=== PATIENT | female | born 1965 | race Caucasian/White ===

== ENCOUNTER 2018-06-19 23:35 | Emergency (ER) | payer OTHER, SELFPAY ==
[2018-06-19 23:59] VITALS: BP 130/76; PULSE 57; RESP 18; TEMP 36.6; O2SAT 99; BMI 24.7
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
[2018-06-20 01:22] VITALS: BP 130/76; PULSE 57; RESP 18; TEMP 36.6; O2SAT 99; BMI 24.7
[2018-06-20 01:42] VITALS: BP 101/65; PULSE 52; RESP 14; O2SAT 98
== END 2018-06-20 01:24 | disposition home or self-care (01) ==
PROVIDERS: Emergency Provider Emergency Medicine; Family Provider Family Medicine; PCP Family Medicine
DX: S06.0X0A Concussion without loss of consciousness, initial encounter (principal); S00.83XA Contusion of other part of head, initial encounter; V49.9XXA Car occupant (driver) (passenger) injured in unspecified traffic accident, initial encounter
CPT/HCPCS: 99282

== ENCOUNTER → 2019-06-24 08:57 | Outpatient (CLI) | payer OTHER, SELFPAY ==
[2019-06-24 09:45] LABS: Add Manual Diff / Slide Review NO; Basophils Absolute Auto 0 /uL (0-100); Basophils Percent Auto 0.7 % (0-2); Eosinophils Absolute Auto 100 /uL (0-450); Eosinophils Percent Auto 1.6 % (2-4); Hematocrit 41.9 % (36-46); Hemoglobin 14.5 g/dL (12.0-16.0); Lymphocytes Absolute Auto 2400 /uL (1100-4500); Mean Corpuscular HGB Conc 34.6 % (30-36); Mean Corpuscular Hemoglobin 30.6 PG (26-34); Mean Corpuscular Volume 88.4 fL (80-100); Monocytes Absolute Auto 500 /uL (0-900); Monocytes Percent Auto 8.3 % (3-14); Neutrophils Absolute Auto 3000 /uL (1500-7000); Neutrophils Percent Auto 49.4 % (50-75); Platelet Count 330 X10^3/uL (150-400); Red Blood Cell Count 4.73 X10^6/uL (4.0-5.2); Red Cell Distribution Width 12.3 % (11.6-14.8); White Blood Cell Count 6.1 X10^3/uL (4.5-11.0)
[2019-06-24 10:51] LABS: Alanine Aminotransferase 31 IU/L (9-52); Albumin 4.8 g/dL (3.5-5.0); Albumin Globulin Ratio 1.7 (1.0-2.8); Alkaline Phosphatase 85 U/L (38-126); Aspartate Aminotransferase 33 IU/L (14-36); BUN Creatinine Ratio 23.3 (6-22); Bilirubin Total 0.6 mg/dL (0.2-1.3); Blood Urea Nitrogen 14 mg/dL (7-17); Calcium 9.8 mg/dL (8.4-10.2); Carbon Dioxide 26 mmol/L (22-32); Chloride 103 mmol/L (98-107); Cholesterol 282 mg/dL (140-199); Estimated Glomerular Filt Rate > 60.0 mL/min (>60); Globulin 2.9 g/dL (1.7-4.1); Glucose 94 mg/dL (70-100); HDL Cholesterol 56 mg/dL (40-60); HEMOLYSIS < 15 (0-50); LDL Cholesterol Calculated 184 mg/dL (<100); Potassium 4.5 mmol/L (3.4-5.1); Sodium 140 mmol/L (137-145); Total Protein 7.7 g/dL (6.3-8.2); Triglycerides 211 mg/dL (35-150)
[2019-06-24 11:17] LABS: TSH w/ Reflex to FT4 1.98 uIU/mL (0.47-4.68)
== END ==
PROVIDERS: PCP Family Medicine; Visit Provider Nurse Practitioner
DX: T67.5XXA Heat exhaustion, unspecified, initial encounter (principal); Z13.220 Encounter for screening for lipoid disorders; Z13.29 Encounter for screening for other suspected endocrine disorder
CPT/HCPCS: 36415; 80053; 80061; 84443; 85025

== ENCOUNTER → 2020-08-14 15:16 | Outpatient (CLI) | payer OTHER, SELFPAY ==
[2020-08-17 06:48] LABS: COVID19 Sendout Not Detected (Not Detect)
== END ==
PROVIDERS: PCP Family Medicine; Visit Provider Nurse Practitioner
DX: Z11.59 Encounter for screening for other viral diseases (principal); J02.9 Acute pharyngitis, unspecified
CPT/HCPCS: 87070; 87635

== ENCOUNTER → 2021-01-31 13:38 | Outpatient (CLI) | payer OTHER, SELFPAY ==
--- NOTE | 2021-01-31 13:40 | DI.MG.S_ITS ---
BILATERAL DIGITAL DIAGNOSTIC MAMMOGRAM 3D/2D: 01/31/2021 CLINICAL: Bilateral lumps. Comparison is made to exams dated: 03/03/2018 mammogram - [facility], 05/06/2017 mammogram, 02/24/2014 mammogram - [facility], and 03/03/2018 ultrasound - [facility]. The tissue of both breasts is heterogeneously dense. This may lower the sensitivity of mammography. No significant masses, calcifications, or other findings are seen in either breast. IMPRESSION: INCOMPLETE: NEEDS ADDITIONAL IMAGING EVALUATION No mammographic evidence of malignancy. A targeted left breast ultrasound is recommended and will immediately follow for palpable abnormality. Patient reports right breast palpable abnormality has resolved and is more diffuse. This exam was interpreted at Station ID: [id number]. NOTE: For mammograms, a report in lay terms will be sent to the patient. Approximately 15% of breast malignancies will not be visualized mammographically. In the management of a palpable breast mass, a negative mammogram must not discourage biopsy of a clinically suspicious lesion. Electronically Signed By: Peyman Reyes M.D. slc/:01/31/2021 15:04:47 ACR BI-RADS Category 0: Incomplete 3340F
--- NOTE | 2021-01-31 13:40 | DI.US.S_ITS ---
LIMITED ULTRASOUND OF LEFT BREAST AND AXILLA: 01/31/2021 CLINICAL: Palpable left breast lump. Comparison is made to exams dated: 01/31/2021 mammogram - [facility], 03/03/2018 ultrasound, [facility]03[facility] Real-time ultrasound of the left breast 5-7 o'clock, retroareolar, and axilla regions was performed. Fitch scale images of the real-time examination were reviewed. No significant abnormalities were seen sonographically in the left breast or the left axilla. IMPRESSION: NEGATIVE There is no sonographic evidence of malignancy in the region of the palpable abnormality. A 1 year screening mammogram is recommended. Exam findings were conveyed to the patient. Patient is advised to monitor for significant change. Clinical follow-up as needed. This exam was interpreted at Station ID: [id number]. Electronically Signed By: Peyman Reyes M.D. slc/:01/31/2021 15:33:41 letter sent: Normal Exam Ultrasound BI-RADS: 1 Negative
== END ==
PROVIDERS: PCP Family Medicine; Referring Provider Family Medicine; Visit Provider Family Medicine
DX: R92.8 Other abnormal and inconclusive findings on diagnostic imaging of breast (principal); N63.20 Unspecified lump in the left breast, unspecified quadrant; N63.10 Unspecified lump in the right breast, unspecified quadrant
CPT/HCPCS: 76642; 77066; G0279

== ENCOUNTER → 2021-02-21 10:42 | Outpatient (CLI) | payer OTHER, SELFPAY | PROVIDERS: PCP Family Medicine; Referring Provider Family Medicine; Visit Provider Family Medicine | DX: R19.7 Diarrhea, unspecified (principal) | CPT/HCPCS: 87177 ==

== ENCOUNTER 2022-10-26 02:13 | Emergency (ER) | payer OTHER, SELFPAY ==
[2022-10-26 02:22] VITALS: BP 128/68; PULSE 91; RESP 18; TEMP 37.2; O2SAT 96; BMI 25.7
--- NOTE | 2022-10-26 02:43 | DI.RAD.S_ITS ---
PROCEDURE: XR CHEST 2V INDICATIONS: cough, SOB TECHNIQUE: 2 views of the chest were acquired. COMPARISON: None. FINDINGS: Surgical changes and devices: None. Lungs and pleura: Lungs are clear. No pleural effusions or pneumothorax. Mediastinum: Mediastinal contours are normal. Heart size is normal. Bones and chest wall: No suspicious bony abnormalities. Soft tissues appear unremarkable. IMPRESSION: No acute cardiopulmonary abnormality. There is no significant discrepancy when compared to the overnight preliminary report. Approved by: Hong Harris M.D. on 10/26/2022 at 7:55
--- NOTE | 2022-10-26 02:43 | ED.SOB ---
HPI - SOB/Dyspnea General Chief Complaint: Upper Respiratory Symptoms Stated Complaint: having hard time breathing Time Seen by Provider: 10/26/22 02:21 Mode of arrival: Ambulatory History of Present Illness HPI Narrative: 57-year-old female nonsmoker with noncontributory medical history presents with a chief complaint of at least a few hours of dry and hacking cough, body aches and subjective fever. She denies any headache or blurred vision and has no runny nose, sore throat nor nausea. She states that she is been exposed to influenza a and is concerned that perhaps she has the same. Related Data Previous Rx's Medication Instructions Recorded methocarbamol 500 mg tablet See Rx Instructions PO Q6-8H 01/09/22 muscle spasm #8 tabs ipratropium bromide 21 mcg (0.03 2 spray intranasal BID-TID PRN 05/31/22 %) nasal spray allergy symptoms #30 mL benzonatate 200 mg capsule 200 mg PO BID PRN cough #20 caps 10/26/22 Allergies Allergy/AdvReac Type Severity Reaction Status Date / Time chlorhexidine [CHLORHEXIDINE] Allergy Mild rash Verified 05/31/22 16:19 Review of Systems Review of Systems Narrative: GENERAL: See HPI HEENT: D see HPI RESPIRATORY: See HPI CARDIOVASCULAR: Denies chest pain, palpitations, orthopnea, edema, GASTROINTESTINAL: Denies nausea, vomiting, abdominal pain, diarrhea, constipation, melena. : Denies dysuria, frequency, incontinence, hematuria, urinary retention. MUSCULOSKELETAL: denies weakness, joint pain, or bony pain SKIN: Denies rash, skin lesions, or other NEUROLOGIC: Denies weakness, headache, numbness, change in speech, confusion, seizures, incoordination. PSYCHIATRIC: No concerning psychosocial issues. 12 point review of systems is negative except for those stated above Patient History Surgical History Status post colonoscopy Status post colonoscopy Status post colonoscopy Social History marital status: unmarried,single number of children: 0 (foster son joint custody, 8 month old adopted son) lives independently: Yes education level: college occupational status: employed Smoking Status: Never smoker alcohol intake: current substance use type: does not use Smoking Status: Never smoker alcohol intake frequency: holidays/special occasions only Substance Use Type: does not use Exam Narrative Exam Narrative: GENERAL: [57] year old patient appears stated age. Well-developed patient, in mild distress. HEAD: Atraumatic. Normocephalic. EYES: Pupils equal round and reactive. Extraocular motions intact. No scleral icterus. No injection or drainage. ENT: Nose without bleeding, purulent drainage. Throat without erythema, tonsillar hypertrophy or exudate. Airway patent. NECK: Trachea midline. Non tender CARDIOVASCULAR: Regular rate and rhythm without murmurs, gallops, or rubs. RESPIRATORY: Clear to auscultation. Breath sounds equal bilaterally. No wheezes, rales, or rhonchi. Deep breath seems to elicit cough, no significant work of breathing, use of accessory muscles or hypoxemia GASTROINTESTINAL: Abdomen soft, non-tender, nondistended. EXTREMITIES: No edema or joint tenderness. BACK: Nontender without deformity or crepitance. No flank tenderness. NEURO: AOx3. SKIN: No rash or erythema of visible areas Initial Vital Signs Initial Vital Signs: Vital Signs Temperature 98.9 F 10/26/22 02:22 Pulse Rate 91 H 10/26/22 02:22 Respiratory Rate 18 10/26/22 02:22 Blood Pressure 128/68 10/26/22 02:22 Pulse Oximetry 96 10/26/22 02:22 Oxygen Delivery Method 10/26/22 02:22 Course Orders Ordered: ED Orders 10/26/22 02:35 Covid-19 + FLU A/B + RSV - PCR Stat 10/26/22 02:43 Chest [XR chest 2V] Stat Vital Signs Vital signs: Vital Signs - 8 hr 10/26/22 02:22 Temperature 98.9 F Pulse Rate 91 H Respiratory Rate 18 Blood Pressure 128/68 Pulse Oximetry 96 Oxygen Delivery Method Room Air MDM - SOB/Dyspnea Lab Data Labs: Lab Results 10/26/22 Range/Units 02:35 SARS-CoV-2 (PCR) Negative (Negative) Influenza A (RT-PCR) Flu a positive H (NEGATIVE) Influenza B (RT-PCR) Flu b negative (NEGATIVE) RSV (PCR) Negative (Negative) Imaging Data Chest x-ray: Radiologist's Impression: Close Chest X-Ray (Signed) Hong Harris - 10/26/22 Mammogram Diagnostic (Signed) Call,Peyman - 01/31/21 Breast Ultrasound (Signed) Call,Peyman - 01/31/21 Launch?Image [address] [address] XRay Report Signed Patient: Iveth Oleary MR#: [id number] : 1965 Acct:[id number] Age/Sex: 57 / F Date of Service: 10/26/22 Loc: ED Accession Number: [id number] ?? Procedure: XR chest 2V Ordering Provider: Flynn Brown D.O. PROCEDURE:? XR CHEST 2V ? INDICATIONS:? cough, SOB ? TECHNIQUE:? 2 views of the chest were acquired.? ? COMPARISON:? None. ? FINDINGS:? ? Surgical changes and devices:? None.? ? Lungs and pleura:? Lungs are clear.? No pleural effusions or pneumothorax.? ? Mediastinum:? Mediastinal contours are normal.? Heart size is normal.? ? Bones and chest wall:? No suspicious bony abnormalities.? Soft tissues appear unremarkable.? ? IMPRESSION:? No acute cardiopulmonary abnormality. ? There is no significant discrepancy when compared to the overnight preliminary report. ? ? ? Approved by: Hong Harris M.D. on 10/26/2022 at 7:55? Discharge Plan Departure Patient Disposition: Home Clinical Impression: Influenza A Instructions: DI for Influenza -- Adult Activity Restrictions/Additional Instructions: *You have been diagnosed with [influenza a] *What to do: *Please continue to take your regular medications as directed. Also as we discussed, I have included a cough medication listed below that will be sent to your pharmacy and it would be advisable to consider routine use of an mtso-cvh-arcousm antihistamines such as Zyrtec or Conchita to help dry the secretions that are causing many of your symptoms [ x] New medication prescriptions sent to your pharmacy: [ [facility]] [ ] New medication written as a paper prescription [ ] No new medications given *Please follow up with your primary care provider in 2-3 days, call for an appointment. Let them know you were seen in the Emergency Department and that we ask that you be seen in follow up. We will electronically transmit a record of today's note if your PCP is in our system *If you do not have a primary care provider please contact the [facility] Resource line at [phone]. They will ask some questions about your medical history and help get you set up with a doctor in the community. *Return to Emergency Department if you should have any new, worsening or concerning symptoms, such as [fever greater than 101 F, shaking chills, worsening pain, persistent vomiting or other bothersome symptoms] Prescriptions: New benzonatate 200 mg capsule 200 mg PO BID PRN (Reason: cough) Qty: 20 0RF No Action methocarbamol 500 mg tablet See Rx Instructions PO Q6-8H Qty: 8 0RF Rx Instructions: 1-2 tablets PO every 6-8 hours; ipratropium bromide 21 mcg (0.03 %) spray,non-aerosol 2 spray intranasal BID-TID PRN (Reason: allergy symptoms) Qty: 30 0RF Rx Instructions: administer into each nostril Referrals: Poly Velazquez DO [Primary Care Provider] - Visit Report Forms: Patient Portal/API
[2022-10-26 03:18] LABS: Influenza A - CEPHEID Flu A POSITIVE (NEGATIVE); Influenza B - CEPHEID Flu B NEGATIVE (NEGATIVE); Respiratory Syncytial Virus Negative (Negative)
[2022-10-26 03:21] LABS: COVID-19 CEPHEID 4-PLEX PCR Negative (Negative)
[2022-10-26 03:32] VITALS: BP 113/57; PULSE 80; RESP 18; O2SAT 98
== END 2022-10-26 03:33 | disposition home or self-care (01) ==
PROVIDERS: Emergency Provider Emergency Medicine; PCP Family Medicine
DX: J10.1 Influenza due to other identified influenza virus with other respiratory manifestations (principal); Z20.822 Contact with and (suspected) exposure to COVID-19
CPT/HCPCS: 0241U; 71046; 99281; 99283

== ENCOUNTER → 2024-03-10 14:01 | Outpatient (CLI) | payer OTHER, SELFPAY ==
--- NOTE | 2024-03-10 14:04 | DI.MG.S_ITS ---
BILATERAL DIGITAL SCREENING MAMMOGRAM 3D/2D WITH CAD: 03/10/2024 CLINICAL: Routine screening. Comparison is made to exams dated: 01/31/2021 mammogram - [facility], 03/03/2018 mammogram - [facility], and 05/06/2017 mammogram - [facility]. Both breasts are heterogeneously dense, which may obscure small masses (category c / 51-75% glandular tissue). Current study was also evaluated with a Computer Aided Detection (CAD) system. There is a developing new asymmetry in the right breast middle depth medial region seen on the craniocaudal view only. No other significant masses, calcifications, or other findings are seen in either breast. IMPRESSION: INCOMPLETE: NEEDS ADDITIONAL IMAGING EVALUATION The developing new asymmetry in the right breast is indeterminate. Additional views with possible ultrasound are recommended. Based on the Tyrer Cuzick model (a risk assessment model) the patient's lifetime risk is 10.0% and her 10 year risk is 3.8%. According to the ACR, ACS, and NCCN guidelines, an annual breast MRI exam along with mammogram is recommended if the patient's lifetime risk is 20% or greater. This exam was interpreted at Station ID: [id number]. NOTE: For mammograms, a report in lay terms will be sent to the patient. Approximately 15% of breast malignancies will not be visualized mammographically. In the management of a palpable breast mass, a negative mammogram must not discourage biopsy of a clinically suspicious lesion. Electronically Signed By: Rika pierre/darcie:03/10/2024 18:11:38 letter sent: Additional Imaging Needed ACR BI-RADS Category 0: Incomplete 3340F
== END ==
PROVIDERS: PCP Internal Medicine; Referring Provider Internal Medicine; Visit Provider Internal Medicine
DX: Z12.31 Encounter for screening mammogram for malignant neoplasm of breast (principal); R92.333 Mammographic heterogeneous density, bilateral breasts
CPT/HCPCS: 77063; 77067

== ENCOUNTER → 2024-04-06 16:45 | Outpatient (CLI) | payer OTHER, SELFPAY ==
[2024-04-06 17:27] LABS: Add Manual Diff / Slide Review NO; Basophils Absolute Auto 100 /uL (0-100); Basophils Percent Auto 0.7 % (0-2); Eosinophils Absolute Auto 100 /uL (0-450); Eosinophils Percent Auto 1.3 % (2-4); Hematocrit 39.9 % (36-46); Hemoglobin 13.7 g/dL (12.0-16.0); Lymphocytes Absolute Auto 3200 /uL (1100-4500); Lymphocytes Percent Auto 35.8 % (25-40); Mean Corpuscular HGB Conc 34.5 % (30-36); Mean Corpuscular Hemoglobin 30.8 PG (26-34); Mean Corpuscular Volume 89.5 fL (80-100); Monocytes Absolute Auto 800 /uL (0-900); Monocytes Percent Auto 8.4 % (3-14); Neutrophils Absolute Auto 4800 /uL (1500-7000); Neutrophils Percent Auto 53.8 % (50-75); Platelet Count 324 X10^3/uL (150-400); Red Blood Cell Count 4.46 X10^6/uL (4.0-5.2); Red Cell Distribution Width 12.4 % (11.6-14.8); White Blood Cell Count 8.9 X10^3/uL (4.5-11.0)
[2024-04-06 17:46] LABS: Erythrocyte Sedimentation Rate 10 MM/HR (0-20)
[2024-04-06 18:16] LABS: Alanine Aminotransferase 32 IU/L (<35); Albumin 4.8 g/dL (3.5-5.0); Albumin Globulin Ratio 1.6 (1.0-2.8); Alkaline Phosphatase 101 U/L (38-126); Aspartate Aminotransferase 31 IU/L (14-36); Bilirubin Total 0.3 mg/dL (0.2-1.3); Blood Urea Nitrogen 18 mg/dL (7-17); C-Reactive Protein Quant < 0.5 mg/dL (<1.0); Carbon Dioxide 22 mmol/L (22-32); Chloride 109 mmol/L (98-107); Cholesterol 268 mg/dL (140-199); Estimated Glomerular Filt Rate > 60 mL/min (>60); Glucose 99 mg/dL (70-100); HDL Cholesterol 49 mg/dL (40-60); HEMOLYSIS < 15 (0-50); LDL Cholesterol Calculated 180 mg/dL (<100); Potassium 3.6 mmol/L (3.4-5.1); Sodium 138 mmol/L (137-145); Total Protein 7.8 g/dL (6.3-8.2); Triglycerides 196 mg/dL (35-150)
[2024-04-06 18:43] LABS: TSH w/ Reflex to FT4 1.36 uIU/mL (0.47-4.68)
== END ==
PROVIDERS: PCP Internal Medicine; Referring Provider Internal Medicine; Visit Provider Internal Medicine
DX: Z00.00 Encounter for general adult medical examination without abnormal findings (principal); E78.2 Mixed hyperlipidemia; M35.3 Polymyalgia rheumatica
CPT/HCPCS: 36415; 80053; 80061; 84443; 85025; 85651; 86140

== ENCOUNTER → 2024-05-07 10:11 | Outpatient (CLI) | payer OTHER, SELFPAY ==
--- NOTE | 2024-05-07 10:11 | DI.US.S_ITS ---
ULTRASOUND OF RIGHT BREAST: 05/07/2024 CLINICAL: Patient returns today to evaluate a focal asymmetry in the right breast. Comparison is made to exams dated: 05/07/2024 mammogram and 03/10/2024 mammogram - [facility]. Color flow and real-time ultrasound of the right breast were performed. There is a possible 0.8 cm x 0.7 cm x 0.4 cm complicated cyst in the right breast at 2 o'clock posterior depth 6 cm from the nipple. This correlates with mammography findings. IMPRESSION: PROBABLY BENIGN The possible 0.8 cm x 0.7 cm x 0.4 cm complicated cyst in the right breast is probably benign. A follow-up mammogram and an ultrasound in 6 months is recommended to demonstrate stability. This exam was interpreted at Station ID: [id number]. Electronically Signed By: Philip vázquez/darcie:05/07/2024 11:50:00 letter sent: Followup Recommended Ultrasound BI-RADS: 3 Probably benign
--- NOTE | 2024-05-07 10:11 | DI.MG.S_ITS ---
UNILATERAL RIGHT DIGITAL DIAGNOSTIC MAMMOGRAM 3D/2D WITH ADDITIONAL VIEWS: 05/07/2024 CLINICAL: Additional evaluation requested from prior study. Comparison is made to exams dated: 03/10/2024 mammogram, 01/31/2021 mammogram - [facility], and 03/03/2018 mammogram - [facility]. The right breast is heterogeneously dense, which may obscure small masses (category c / 51-75% glandular tissue). There is an asymmetry in the right breast middle depth medial region seen on the craniocaudal view only. No other significant masses or calcifications are seen in the breast. IMPRESSION: INCOMPLETE: NEEDS ADDITIONAL IMAGING EVALUATION The asymmetry in the right breast is indeterminate. An ultrasound is recommended. Based on the Tyrer Cuzick model (a risk assessment model) the patient's lifetime risk is 10.0% and her 10 year risk is 3.8%. According to the ACR, ACS, and NCCN guidelines, an annual breast MRI exam along with mammogram is recommended if the patient's lifetime risk is 20% or greater. This exam was interpreted at Station ID: [id number]. NOTE: For mammograms, a report in lay terms will be sent to the patient. Approximately 15% of breast malignancies will not be visualized mammographically. In the management of a palpable breast mass, a negative mammogram must not discourage biopsy of a clinically suspicious lesion. Electronically Signed By: Philip Hooper M.D. lc/:05/07/2024 11:48:58 ACR BI-RADS Category 0: Incomplete 3340F
== END ==
PROVIDERS: PCP Internal Medicine; Referring Provider Internal Medicine; Visit Provider Internal Medicine
DX: R92.8 Other abnormal and inconclusive findings on diagnostic imaging of breast (principal); R92.331 Mammographic heterogeneous density, right breast; N60.01 Solitary cyst of right breast
CPT/HCPCS: 76642; 77065; G0279

== ENCOUNTER → 2024-07-16 10:54 | Outpatient (CLI) | payer OTHER, SELFPAY | PROVIDERS: PCP Internal Medicine; Referring Provider Internal Medicine; Visit Provider Internal Medicine | DX: R19.7 Diarrhea, unspecified (principal) | CPT/HCPCS: 87177 ==

== ENCOUNTER 2025-01-07 09:49 | Day surgery (SDC) | payer OTHER, SELFPAY ==
[2025-01-07] MEDS: LACTATED RINGERS 1,000 ML 42 ML IV (10:05)
[2025-01-07 10:10] VITALS: BP 111/76; PULSE 73; RESP 18; TEMP 37.1; O2SAT 98
--- NOTE | 2025-01-07 10:36 | P.HP_ITS ---
History of Present Illness History of Present Illness Date Patient Seen: 01/07/25 Time Patient Seen: 10:36 Chief complaint: SDC Narrative: Denisse is a 51-year-old woman here for a colonoscopy. She has had many colonoscopies in the past, most recently proximally 2017. She has had polyps found in the past. 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, rental properties number of children: 0 (foster son joint custody, 8 month old adopted son) lives independently: Yes education level: college occupational status: employed Smoking Status: Never smoker alcohol intake: current substance use type: does not use Meds Home Medications and Allergies Allergies Allergy/AdvReac Type Severity Reaction Status Date / Time chlorhexidine [CHLORHEXIDINE] Allergy Mild rash Verified 01/07/25 10:03 Exam Vital Signs (past 8 hours): - 01/07/25 10:10 Temperature 98.7 F Pulse Rate 73 Respiratory Rate 18 Blood Pressure 111/76 Pulse Oximetry 98 Oxygen Delivery Method Room Air Oxygen Delivery Method Room Air Const General: healthy appearing Assessment & Plan Assessment and plan (1) History of colonic polyps: Status: None Plan Colonoscopy for colon cancer screening Time-Based Coding :: [TOTAL MINUTES] spent with patient and on the chart (including review of chart, obtaining history, exam, reviewing outside data, placing orders, documenting exam and treatment plan, and counseling patient) on [DATE]. PROFEE Physics Instructor Document charge(s): No
[2025-01-07 11:02] VITALS: BP 86/46; PULSE 64; RESP 14; TEMP 36.5; O2SAT 93
--- NOTE | 2025-01-07 11:06 | PM.OP.COLON ---
Operative Date/Time/Diagnoses Date of procedure: 01/07/25 Time of procedure: 11:06 Pre-op diagnosis: History of polyps Post-op diagnosis: same Procedure & Clinicians Study performed: Colonoscopy Same procedure as scheduled: Yes Surgeon: Ishan Rubi Procedure Notes Procedure in detail: Surgeon: Ishan Rubi MD Anesthesia: Johanna Elaine CRNA Procedure: The patient was brought to the endoscopy suite, placed in left lateral decubitus position. The patient was connected to monitoring devices. A time-out was performed. Sedation was administered. Once the patient was adequately sedated, a digital rectal exam was performed and was normal. The scope was then inserted and advanced to the cecum where the appendiceal orifice was identified and photographed. The scope was then slowly withdrawn over greater than 6 minutes. The mucosa was thoroughly inspected. No abnormalities were found. The scope was retroflexed in the rectum. The scope was straightened and removed. The patient was awakened and brought to recovery. Scope withdrawal time: 6 minutes Sedation time: 11 minutes EBL: 0 Findings: Normal colon Post-procedure Recommendations: Colonoscopy in 10 years Disposition: PACU
[2025-01-07 11:07] VITALS: BP 88/51; PULSE 60; RESP 12; O2SAT 95
[2025-01-07 11:13] VITALS: BP 99/54; PULSE 67; RESP 12; O2SAT 97
[2025-01-07 11:18] VITALS: BP 113/46; PULSE 61; RESP 12; TEMP 36.3; O2SAT 96
== END 2025-01-07 11:52 | disposition home or self-care (01) ==
PROVIDERS: PCP Internal Medicine; Referring Provider Surgery; Visit Provider Surgery
PROC: 0DJD8ZZ Inspection of Lower Intestinal Tract, Via Natural or Artificial Opening Endoscopic (ICD-10-PCS; CPT 45378; principal; 2025-01-07 11:00)
DX: Z12.11 Encounter for screening for malignant neoplasm of colon (principal); Z86.0100 Personal history of colon polyps, unspecified
CPT/HCPCS: 45378; J2704

== ENCOUNTER → 2025-02-19 09:23 | Outpatient (CLI) | payer OTHER, SELFPAY ==
--- NOTE | 2025-02-19 09:24 | DI.US.S_ITS ---
MM diagnostic mammo BI, US breast RT limited: 02/19/2025 BI-RADS: 3 CLINICAL: 60-year old female for bilateral diagnostic mammogram and right diagnostic breast ultrasound. The patient presents for short interval follow up of the right breast and screening of the left breast. Tyrer-Cuzick lifetime risk of 8.7%. No personal or first-degree family history of breast cancer. PRIOR EXAMS 05/07/2024, 03/10/2024, 01/31/2021, 03/03/2018, 05/06/2017. MAMMOGRAPHY TECHNIQUE: 2D and 3D (tomosynthesis) digital mammographic views obtained, with additional images as needed for full coverage. Current study was also evaluated with a Computer Aided Detection (CAD) system. ULTRASOUND TECHNIQUE Real-time jones scale and color doppler imaging of the area of clinical interest was performed with image documentation. TARGETED Right Breast Ultrasound: Real-time ultrasound exam was performed focused to area of clinical and/or imaging concern. DENSITY C. The breasts are heterogeneously dense, which may obscure small masses. MAMMOGRAPHY FINDINGS Right (finding-1): CC only, Inner, Middle depth, measuring 0.6 cm: Correlating with prior imaging concern there is an asymmetry seen only on one view that is unchanged in size and appearance. Left: No suspicious mass, asymmetry, microcalcification, or other abnormality seen. ULTRASOUND FINDINGS Right (finding-1): Upper Inner at 2:00, 6 cm from nipple, measuring 0.8 x 0.7 x 0.3 cm, previously measuring 0.8 x 0.7 x 0.4 cm: Correlating with findings on mammogram there is a complicated cyst that is unchanged in size and appearance. IMPRESSION: Right (Complicated Cyst): Upper Inner at 2:00, 6 cm from nipple, measuring 0.8 x 0.7 x 0.3 cm, previously measuring 0.8 x 0.7 x 0.4 cm * Probably Benign. Left * No evidence of malignancy. RECOMMENDATIONS Right: Upper Inner at 2:00, 6 cm from nipple * Six month followup with diagnostic ultrasound and diagnostic mammography. Left * Annual screening mammography in one year. OVERALL ASSESSMENT CATEGORY BI-RADS-3: Probably Benign. ELECTRONICALLY SIGNED: Kim Hadley M.D. on 02/19/2025 at 11:45:22 AM PT Interpreting Station ID: [id number]
== END ==
PROVIDERS: PCP Internal Medicine; Referring Provider Internal Medicine; Visit Provider Internal Medicine
DX: N60.01 Solitary cyst of right breast (principal); R92.8 Other abnormal and inconclusive findings on diagnostic imaging of breast; R92.333 Mammographic heterogeneous density, bilateral breasts
CPT/HCPCS: 76642; 77066; G0279

== ENCOUNTER → 2025-11-19 08:40 | Outpatient (CLI) | payer OTHER, SELFPAY ==
--- NOTE | 2025-11-19 08:42 | DI.US.S_ITS ---
MM diagnostic mammo unilat RT, US breast RT limited: 11/19/2025 BI-RADS: 2 CLINICAL: 60-year old female for right diagnostic mammogram and right diagnostic breast ultrasound that is a follow-up to diagnostic mammogram on 02/19/2025. Tyrer- Cuzick lifetime risk of 6.9%. No personal or first-degree family history of breast cancer. PRIOR EXAMS 02/19/2025, 05/07/2024, 03/10/2024, 01/31/2021. MAMMOGRAPHY TECHNIQUE: 2D and 3D (tomosynthesis) digital mammographic views obtained, with additional images as needed for full coverage. Current study was also evaluated with a Computer Aided Detection (CAD) system. ULTRASOUND TECHNIQUE: TARGETED Right Breast Ultrasound: Real-time ultrasound exam was performed focused to area of clinical and/or imaging concern. Real-time jones scale and color doppler imaging of the area of clinical interest was performed with image documentation. DENSITY Right: C. The breast is heterogeneously dense, which may obscure small masses. MAMMOGRAPHY FINDINGS Right (finding-1): CC only, Inner, Middle depth: Correlating with prior imaging concern, there is an asymmetry seen only on one view that has decreased in size. Right: CC only, Outer, Middle depth: A questioned asymmetry did not persist with additional imaging and is consistent with superimposition of normal breast tissue. ULTRASOUND FINDINGS Right (finding-1): Upper Inner at 2:00, 6 cm from nipple, measuring 0.6 x 0.5 x 0.2 cm - previously measuring (05/07/2024) 0.8 x 0.7 x 0.4 cm: Correlating with findings on mammogram and prior imaging concern, there are clustered microcysts that have decreased in size. Doppler shows no vascularity. IMPRESSION: Right * No evidence of malignancy with benign findings. RECOMMENDATIONS Bilateral * Annual screening mammography (due January 2026). COMMENTS: Findings and recommendations were conveyed to the patient during today's evaluation. OVERALL ASSESSMENT CATEGORY BI-RADS-2: Benign. The [employer] recommends annual screening mammography beginning at age 40 for women with average risk of breast cancer. ELECTRONICALLY SIGNED: Kim Hadley M.D. on 11/19/2025 at 10:26:08 AM PT Interpreting Station ID: [id number]
== END ==
LOC: MAMMO 08:41
PROVIDERS: PCP Internal Medicine; Referring Provider Internal Medicine; Visit Provider Internal Medicine
DX: N63.10 Unspecified lump in the right breast, unspecified quadrant (principal); R92.331 Mammographic heterogeneous density, right breast
CPT/HCPCS: 76642; 77065; G0279